=== PATIENT | male | born 1935 | race Caucasian/White ===

== ENCOUNTER 2017-11-13 15:58 | Emergency (ER) | payer MEDICARE, BC ==
[~2017-11-13] VITALS: Ht 180.3 cm; Wt 103.4 kg
[2017-11-13] MEDS ORDERED: PRINIVIL20 MG PO (16:11)
[2017-11-13] MEDS ORDERED: LOVASTATIN 20 M20 MG PO (16:12)
[2017-11-13] MEDS ORDERED: FISH OIL 1,0001 EAC1 PO (16:12)
[2017-11-13] MEDS ORDERED: NIFEDIPINE10 MG PO (16:12)
[2017-11-13 16:54] VITALS: BP 130/67
== END 2017-11-13 16:55 | disposition home or self-care (01) ==
LOC: M.ERS 15:58
DX: L02.01 Cutaneous abscess of face (principal); L98.9 Disorder of the skin and subcutaneous tissue, unspecified; I10 Essential (primary) hypertension; M19.90 Unspecified osteoarthritis, unspecified site